=== PATIENT | male | born 1985 | race African-American/Black ===

== ENCOUNTER 2017-12-11 13:36 | Emergency (ER) | payer SELFPAY ==
--- NOTE | 2017-12-11 14:44 | ER Document Report ---
ED Medical Screen (RME) - General Chief Complaint: Syncope Stated Complaint: SYNCOPE Time Seen by Provider: 12/11/17 14:42 Mode of Arrival: Medic Information source: Patient, Parent, [facility] Records Notes: 32-year-old male with untreated hypertension presents via EMS after a syncopal episode. Patient states that he was out with his mother eating lunch when he suddenly became nauseous, went outside to get fresh air and then had a loss of consciousness. Patient denies any preceding chest pain, shortness of breath. He denies any recent illness. He does admit to prior similar symptoms. I have greeted and performed a rapid initial assessment of this patient. A comprehensive ED assessment and evaluation of the patient, analysis of test results and completion of medical decision making process we will be contacted by additional ED providers. PHYSICAL EXAMINATION: GENERAL: Well-appearing, well-nourished and in no acute distress. HEAD: Atraumatic, normocephalic. EYES: Pupils equal round extraocular movements intact, conjunctiva are normal. ENT: Nares patent NECK: Normal range of motion LUNGS: No respiratory distress Musculoskeletal: Normal range of motion NEUROLOGICAL: Normal speech, normal gait. PSYCH: Normal mood, normal affect. SKIN: Warm, Dry, normal turgor, no rashes or lesions noted. TRAVEL OUTSIDE OF THE [place] IN LAST 30 DAYS: No - HPI Onset: Just prior to arrival Onset/Duration: Sudden Quality of pain: No pain Associated Symptoms: Dizzy/lightheaded, Nausea, Other - Syncope. denies: Diarrhea, Vomiting Exacerbated by: Denies Relieved by: Denies Similar symptoms previously: Yes Recently seen / treated by doctor: No - Related Data Smoking: Cigarettes Frequency of alcohol use: Occasional Drug Abuse: Marijuana Allergies/Adverse Reactions: No Known Allergies Allergy (Verified 12/11/17 13:40) Past Medical History - Past Medical History Cardiac Medical History: Reports: Hx Hypertension Renal/ Medical History: Denies: Hx Peritoneal Dialysis Psychiatric Medical History: Reports: Hx Depression - Immunizations Hx Diphtheria, Pertussis, Tetanus Vaccination: Yes Physical Exam - Vital signs Vitals: Temp Pulse Resp BP Pulse Ox 98 F 74 14 160/106 H 97 12/11/17 13:41 12/11/17 13:41 12/11/17 13:41 12/11/17 13:41 12/11/17 13:41 Course - Vital Signs Vital signs: Temp Pulse Resp BP Pulse Ox 98 F 74 14 160/106 H 97 12/11/17 13:41 12/11/17 13:41 12/11/17 13:41 12/11/17 13:41 12/11/17 13:41 Doctor's Discharge - Discharge Referrals: CHIRAG SHEA MD [Primary Care Provider] - Follow up as needed
[2017-12-11 15:07] LABS: ABSOLUTE EOSINOPHILS # (AUTO) 0.1 10^3/uL (0.0-0.6); ABSOLUTE LYMPHOCYTES (AUTO) 5.1 10^3/uL (0.5-4.7); ABSOLUTE MONOCYTES (AUTO) 1.1 10^3/uL (0.1-1.4); ABSOLUTE NEUT (AUTO) 5.6 10^3/uL (1.7-8.2); BASOPHILS % (AUTO) 0.3 % (0-2); EOSINOPHILS % (AUTO) 0.5 % (0-6); HEMATOCRIT 47.5 % (37.9-51.0); LYMPHOCYTES % (AUTO) 42.7 % (13-45); MEAN CORPUSCULAR HEMOGLOBIN 28.3 pg (27.0-33.4); MEAN CORPUSCULAR HGB CONC 33.7 g/dL (32.0-36.0); MEAN CORPUSCULAR VOLUME 84 fl (80-97); MONOCYTES % (AUTO) 9.6 % (3-13); PLATELET COUNT 293 10^3/uL (150-450); RED BLOOD COUNT 5.67 10^6/uL (4.35-5.55); RED CELL DISTRIBUTION WIDTH 13.7 % (11.5-14.0); SEGMENTED NEUTROPHILS % (AUTO) 46.9 % (42-78); TOTAL CELLS COUNTED % (AUTO) 100 %; WHITE BLOOD COUNT 11.9 10^3/uL (4.0-10.5)
[2017-12-11 15:12] LABS: ALANINE AMINOTRANSFERASE 69 U/L (21-72); ALKALINE PHOSPHATASE 70 U/L (38-126); ANION GAP 14 (5-19); ASPARTATE AMINO TRANSFERASE 101 U/L (17-59); BILIRUBIN,DIRECT 0.6 mg/dL (0.0-0.4); BILIRUBIN,TOTAL 1.9 mg/dL (0.2-1.3); BLOOD UREA NITROGEN 17 mg/dL (7-20); CALCIUM 10.2 mg/dL (8.4-10.2); CARBON DIOXIDE 25 mmol/L (22-30); CHLORIDE 104 mmol/L (98-107); GLUCOSE 106 mg/dL (75-110); POTASSIUM 4.2 mmol/L (3.6-5.0); SODIUM 142.6 mmol/L (137-145); TOTAL PROTEIN 8.6 g/dL (6.3-8.2)
[2017-12-11 16:24] LABS: APPEARANCE,URINE CLEAR; BILIRUBIN,URINE SMALL (NEGATIVE); GLUCOSE, URINE NEGATIVE (NEGATIVE); KETONES,URINE TRACE mg/dL (NEGATIVE); LEUKOCYTE ESTERASE,URINE NEGATIVE (NEGATIVE); NITRITE,URINE NEGATIVE (NEGATIVE); PROTEIN,URINE 100 mg/dL (NEGATIVE); URINE SPECIFIC GRAVITY 1.039
[2017-12-11 16:25] LABS: COLOR,URINE DARK YELLOW
[2017-12-11 16:37] LABS: URINE AMPHETAMINES SCREEN NEGATIVE; URINE BARBITURATES SCREEN NEGATIVE; URINE BENZODIAZEPINES SCREEN NEGATIVE; URINE COCAINE SCREEN NEGATIVE; URINE MARIJUANA (THC) SCREEN UNCONFIRMED POSITIVE; URINE METHADONE SCREEN NEGATIVE; URINE PHENCYCLIDINE SCREEN NEGATIVE
[2017-12-11] MEDS ORDERED: RINGERS SOLUTION,LACTATED 1,000 ML IV ONE (17:53)
--- NOTE | 2017-12-11 18:19 | ER Document Report ---
ED General - General Chief Complaint: Syncope Stated Complaint: SYNCOPE Time Seen by Provider: 12/11/17 14:42 Mode of Arrival: Ambulatory Information source: Patient Notes: 32-year-old male presents emergency department status post syncopal episode. Patient states that he was sitting down eating when he began feeling lightheaded and nauseated. Patient walked outside to get some fresh air. He then passed out. Patient denies any chest pain or shortness of breath prior to the syncopal episode. Patient has had syncopal episodes in the past. No known cause. Patient denies any medical problems. Not on any medication. He denies headache, vision changes, speech changes, numbness, tingling or weakness. TRAVEL OUTSIDE OF THE [place] IN LAST 30 DAYS: No - HPI Onset: Just prior to arrival Onset/Duration: Sudden Quality of pain: No pain Associated symptoms: Nausea, Weakness Exacerbated by: Denies Relieved by: Denies Similar symptoms previously: Yes Recently seen / treated by doctor: No - Related Data Allergies/Adverse Reactions: No Known Allergies Allergy (Verified 12/11/17 13:40) Past Medical History - General Information source: Patient, Parent, [facility] Records - Social History Smoking Status: Never Smoker Frequency of alcohol use: Occasional Drug Abuse: Marijuana Family History: Reviewed & Not Pertinent Patient has suicidal ideation: No Patient has homicidal ideation: No - Past Medical History Cardiac Medical History: Reports: Hx Hypertension Renal/ Medical History: Denies: Hx Peritoneal Dialysis Psychiatric Medical History: Reports: Hx Depression - Immunizations Hx Diphtheria, Pertussis, Tetanus Vaccination: Yes Review of Systems - Review of Systems Constitutional: No symptoms reported EENT: No symptoms reported Cardiovascular: Lightheaded Respiratory: No symptoms reported Gastrointestinal: Nausea Genitourinary: No symptoms reported Male Genitourinary: No symptoms reported Musculoskeletal: No symptoms reported Skin: No symptoms reported Hematologic/Lymphatic: No symptoms reported Neurological/Psychological: No symptoms reported -: Yes All other systems reviewed and negative Physical Exam - Vital signs Vitals: Temp Pulse Resp BP Pulse Ox 98 F 74 14 160/106 H 97 12/11/17 13:41 12/11/17 13:41 12/11/17 13:41 12/11/17 13:41 12/11/17 13:41 - Notes Notes: PHYSICAL EXAMINATION: GENERAL: Well-appearing, well-nourished and in no acute distress. HEAD: Atraumatic, normocephalic. EYES: Pupils equal round and reactive to light, extraocular movements intact, sclera anicteric, conjunctiva are normal. ENT: Nares patent, oropharynx clear without exudates. Moist mucous membranes. NECK: Normal range of motion, supple without lymphadenopathy LUNGS: Breath sounds clear to auscultation bilaterally and equal. No wheezes rales or rhonchi. HEART: Regular rate and rhythm without murmurs ABDOMEN: Soft, nontender, nondistended abdomen. No guarding, no rebound. No masses appreciated. Musculoskeletal: Normal range of motion, no pitting or edema. No cyanosis. NEUROLOGICAL: Cranial nerves grossly intact. Normal speech, normal gait. Normal sensory, motor exams PSYCH: Normal mood, normal affect. SKIN: Warm, Dry, normal turgor, no rashes or lesions noted. Course - Re-evaluation Re-evalutation: 12/11/17 18:24 EKG: Ventricular rate 76, CO interval 148, QRS duration 82, QTc 405, sinus rhythm. No ischemic changes. - Vital Signs Vital signs: Temp Pulse Resp BP Pulse Ox 98 F 74 14 160/106 H 97 12/11/17 13:41 12/11/17 13:41 12/11/17 13:41 12/11/17 13:41 12/11/17 13:41 - Laboratory Result Diagrams: 12/11/17 13:20 12/11/17 13:20 Laboratory results interpreted by me: 12/11/17 12/11/17 12/11/17 13:20 13:20 16:05 WBC 11.9 H RBC 5.67 H Absolute Lymphocytes 5.1 H Creatinine 1.36 H Total Bilirubin 1.9 H Direct Bilirubin 0.6 H AST 101 H Total Protein 8.6 H Urine Protein 100 H Urine Ketones TRACE H Urine Bilirubin SMALL H Urine Urobilinogen 4.0 H Discharge - Discharge Clinical Impression: Syncope Qualifiers: Syncope type: unspecified Qualified Code(s): R55 - Syncope and collapse Condition: Good Disposition: HOME, SELF-CARE Instructions: Syncopal Episode ([facility]) Referrals: CHIRAG SHEA MD [ACTIVE STAFF] - Follow up as needed
--- NOTE | 2017-12-11 19:35 | EKG REPORT ---
SEVERITY:- BORDERLINE ECG - SINUS RHYTHM BORDERLINE T WAVE ABNORMALITIES : Confirmed by: Kusum Wilcox MD 11-Dec-2017 19:34:46
[2017-12-11 19:42] VITALS: BP 166/108
== END 2017-12-11 19:40 | disposition home or self-care (01) ==
LOC: ER 13:36
DX: R55 Syncope and collapse (principal); R11.0 Nausea; R53.83 Other fatigue; I10 Essential (primary) hypertension
CPT/HCPCS: 36415; 80053; 80307; 81001; 84484; 85025; 93005; 93010; 96360; 99285